=== PATIENT | male | born 1995 | race Caucasian/White ===

== ENCOUNTER → 2020-11-14 11:48 | Outpatient (BNVA) | payer BC, SELFPAY | PROVIDERS: Family Provider Internal Medicine; PCP Registered Nurse; Visit Provider Orthopaedic Surgery | DX: S62.393A Other fracture of third metacarpal bone, left hand, initial encounter for closed fracture (principal); S67.22XA Crushing injury of left hand, initial encounter; W23.0XXA Caught, crushed, jammed, or pinched between moving objects, initial encounter | CPT/HCPCS: 73130 ==